=== PATIENT | female | born 1960 | race Caucasian/White ===

== ENCOUNTER → 2018-07-04 | Outpatient (CLI) | payer OTHER, SELFPAY ==
--- NOTE | 2018-07-04 06:10 | RAD_ITS ---
STUDY: X-RAY - LUMBAR SPINE REASON FOR EXAM: Female, 57 years old. Chronic low back pain. TECHNIQUE: 3 view(s) of the lumbar spine were obtained. COMPARISON: None FINDINGS: There is an exaggerated lumbar lordosis. There is no substantial scoliosis. Grade 2 anterior listhesis of L4 on L5 without spondylolysis. Normal vertebral bodies and endplates. There is multi-level degenerative disc disease with multi-level disc space narrowing. Facet joint osteoarthritis. Calcified phleboliths. RAD/Lumbar Spine 2 or 3 Views IMPRESSION: Degenerative changes of the spine, as detailed above. Grade 2 anterior listhesis of L4 on L5. Electronically Signed: Eric Minor, at 9:55 EDT , Service support ,
--- NOTE | 2018-07-04 06:10 | RAD_ITS ---
STUDY: X-RAY - CERVICAL SPINE REASON FOR EXAM: Female, 57 years old. Chronic neck pain. TECHNIQUE: 5 view(s) of the cervical spine were obtained including oblique views. COMPARISON: None FINDINGS: Normal anterior atlantoaxial articulation. Normal odontoid process. There is straightening of the normal cervical lordosis. There is multi-level endplate spondylosis. There is multi-level degenerative disc disease with multilevel disc space narrowing. There is multi-level osseous foraminal stenosis. The soft tissue structures are unremarkable. RAD/Cerv Spine 4 or 5 Views IMPRESSION: Multilevel disc space narrowing and spondylosis. Narrowing of the intervertebral foramen bilaterally. Electronically Signed: Eric Minor, at 9:57 EDT , Service support ,
== END | disposition home or self-care (01) ==
LOC: RAD 05:57
PROVIDERS: Referring Provider Anesthesiology Pain Medicine; Visit Provider Anesthesiology Pain Medicine
DX: M54.2 Cervicalgia (principal); M54.9 Dorsalgia, unspecified
CPT/HCPCS: 72050; 72100

== ENCOUNTER → 2019-12-05 06:09 | Outpatient (CLI) | payer OTHER, SELFPAY ==
--- NOTE | 2019-12-05 06:22 | RAD_ITS ---
STUDY: X-RAY - RIGHT SHOULDER REASON FOR EXAM: Female, 59 years old. RIGHT SHOULDER PAIN, HX OF ARTHRITIS. TECHNIQUE: 4 view(s) of the shoulder. COMPARISON: None. FINDINGS: Normal glenohumeral articulation. Normal acromioclavicular joint. Normal acromion. Normal humeral head and visualized proximal humerus. The soft tissue structures are unremarkable. Normal visualized pulmonary apex. RAD/Shoulder min 2 Views IMPRESSION: Normal x-ray examination of the shoulder. Electronically Signed: Sher Kirk MD at 15:53 EDT Tel , Service support ,
== END ==
PROVIDERS: Referring Provider Nurse Practitioner Family; Visit Provider Nurse Practitioner Family
DX: M25.511 Pain in right shoulder (principal)
CPT/HCPCS: 73030

== ENCOUNTER 2020-01-16 07:00 | Outpatient (RCR) | payer OTHER, SELFPAY ==
--- NOTE | 2019-12-17 17:41 | HP.PTEVAL ---
Patient's Visit Information GASTON CLEANING is a 59 year old F referred to Physical Therapy by Dr. Lance Cavanaugh MD with a diagnosis of c-spine DDD, spondylosis, radic, shld pain. Date of Evaluation: 12/17/19 Physical Therapist: VIVIEN Oseguera - Visit Plan Frequency: 2x /Week Duration: 4 Weeks Plan: 2X/ week for 4 weeks for scapular strengthening, RC strengthening, MT to B mid traps, postural exercises with HEP and modalities as needed. HEP: wall corner stretch and mid rows orange - Subjective Pt just moved here from [place] and been seeing [facility] for 3-4 years for back and neck and 2 TKR. She just had abalation of the bottom 3 c-spine vertebrea and they were hoping that the shoulder pain would go away and it has helped the neck pain by 80% but did not touch the shoulder pain. The shoulder pain keeps her up at night. The shoulder pain started 4 years ago and PCP felt grinding in her shoulder and from that point fw it has gradually gotten worse and the last 3 months have been brutal. 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 It does not stop her, she just takes more pain meds. R shoulder and she is R handed. She has N&T clear down to her hand 1/3 of nights. Sometimes it helps to lay on the R shoulder and sometimes she can not sleep on it. Last night she took 3 extra strength tylenol and tramadol and a flexerile to sleep. - Pain R shoulder pain Pain Intensity (Out of 10): 4 Pain Intensity Range: 10 - Objective R handed R 45# and L 44#. B shld AROM in flex. abd, ER and IR all WFL. + HK test on the R. +empty can test for pain and weakness on the R. Tender to palpation under the acrominion on the R and some bicep tendon tenderness. R shld MMT: flex 4-/5, abd 3+/5, ER 4-/5 and IR 4/5. L shld MMT: flex , abd , ER and IR all 4/5. posture: sits with rounded shoulders and increase PPT - Goals Goal 1:: I HEP Goal Time Frame: 4-6 Weeks Goal 2:: Decrease R shoulder pain to 1/10 with ADL's Goal Time Frame: 4-6 Weeks Goal 3:: Be able to sleep at night without the pain waking her up at night Goal Time Frame: 4-6 Weeks Goal 4:: Increase R shoulder MMT by 1/2 muscle grade Goal Time Frame: 4-6 Weeks Goal 5:: Sit with upright posture during treatment sessions Goal Time Frame: 4-6 Weeks - Rehabilitation Potential Rehabilitation Potential: Good - Anticipated Interventions Patient/Client Instruction: Educate patient on: Condition, Plan of Care For the Purpose of:: To decrease pain, To increase ROM, To improve nutrient delivery to tissue, To improve muscle performance and motor function, To improve ability to perform ADL's, To increase tolerance to activity/condition/position, To improve performance and independence with ADL's, To decrease level of supervision to perform tasks, To improve ability of physical actions for home/community/work/leisure, To improve health of tissue, To increase flexibility/ROM Therapeutic Exercise to Include: Strength training, Postural training, Flexibilty training, Active ROM, Scapular Strength/Stabilization For the Purpose of:: To decrease pain, To increase ROM, To increase oxygenation perfusion, To improve muscle performance and motor function, To improve ability to perform ADL's, To increase tolerance to activity/condition/position, To improve performance and independence with ADL's Manual Therapy Techniques to Include: Passive ROM, Soft tissue mobilization For the Purpose of:: To decrease pain, To increase ROM, To improve nutrient delivery to tissue, To improve muscle performance and motor function IF ES: Yes Cryotherapy (ice pack, ice massage): Yes Thermo therapy (hot pack): Yes Ultrasound (thermal/non thermal): Yes For the Purpose of:: To decrease pain, To decrease swelling/inflammation, To increase ROM, To improve nutrient delivery to tissue Thank you for the opportunity to evaluate your patient. For Medicare and Medicare HMO plans, please review the plan of care and approve it. It will need to be FAXED BACK to us at [phone] for Medicare purposes. For Medicare only, by signing this I certify the plan of care. Please let me know if there are questions or concerns regarding this plan of care. Physician Signature: Date:
--- NOTE | 2020-03-23 10:57 | HP.PT.NRP ---
GASTON CLEANING was seen in my office for initial evaluation on 12/17/19. The following Plan of Care was established for this patient: Initial Frequency: 2x /Week Initial Duration: 4 Weeks Patient/Client Instruction: Educate patient on: Condition, Plan of Care For the Purpose of:: To decrease pain, To increase ROM, To improve nutrient delivery to tissue, To improve muscle performance and motor function, To improve ability to perform ADL's, To increase tolerance to activity/condition/position, To improve performance and independence with ADL's, To decrease level of supervision to perform tasks, To improve ability of physical actions for home/community/work/leisure, To improve health of tissue, To increase flexibility/ROM Therapeutic Exercise to Include: Strength training, Postural training, Flexibilty training, Active ROM, Scapular Strength/Stabilization For the Purpose of:: To decrease pain, To increase ROM, To increase oxygenation perfusion, To improve muscle performance and motor function, To improve ability to perform ADL's, To increase tolerance to activity/condition/position, To improve performance and independence with ADL's Manual Therapy Techniques to Include: Passive ROM, Soft tissue mobilization For the Purpose of:: To decrease pain, To increase ROM, To improve nutrient delivery to tissue, To improve muscle performance and motor function IF ES: Yes Cryotherapy (ice pack, ice massage): Yes Thermo therapy (hot pack): Yes Ultrasound (thermal/non thermal): Yes For the Purpose of:: To decrease pain, To decrease swelling/inflammation, To increase ROM, To improve nutrient delivery to tissue This patient was last seen in our office 01/16/20. Pertinent comments regarding their Physical therapy will appear below: TONE PT At this point I will be discontinuing this patient from physical therapy. I would be happy to see this patient again in the future if found appropriate by the physician. Thank you! Elizabeth Manzo, MPT
== END 2020-01-16 19:00 | disposition home or self-care (01) ==
LOC: PT 07:00
PROVIDERS: Referring Provider Anesthesiology Pain Medicine; Visit Provider Anesthesiology Pain Medicine
DX: M50.10 Cervical disc disorder with radiculopathy, unspecified cervical region (principal); M47.22 Other spondylosis with radiculopathy, cervical region; M48.02 Spinal stenosis, cervical region; M46.92 Unspecified inflammatory spondylopathy, cervical region; M25.519 Pain in unspecified shoulder
CPT/HCPCS: 97110; 97162; 97530

== ENCOUNTER → 2020-01-23 07:03 | Outpatient (CLI) | payer OTHER, SELFPAY ==
[2020-01-23 10:31] LABS: Anion Gap 3 (5-15); BUN 13 mg/dL (7-18); BUN/Creat Ratio 20.5 RATIO (10-20); Calcium,Total 8.8 mg/dL (8.5-10.1); Chloride 108 mmol/L (98-107); Cholesterol 210 mg/dL (200); Creatinine, Serum 0.63 mg/dL (0.55-1.02); EST Glomerular Filtration Rate 102 mL/min (>60); Est Glom Filt Rate - Afr Amer 123 mL/min (>60); Glucose 88 mg/dL (74-106); High Density Lipoprotein 65 mg/dL; Sodium Level 140 mmol/L (136-145); Thyroid Stim Hormone (TSH) 2.26 uIU/mL (0.358-3.74); Triglycerides 116 mg/dL; Very Low Density Lipoprotein 23 mg/dL (5-40)
== END ==
PROVIDERS: PCP Family Medicine; Referring Provider Family Medicine; Visit Provider Family Medicine
DX: Z13.1 Encounter for screening for diabetes mellitus (principal); Z13.220 Encounter for screening for lipoid disorders; Z83.49 Family history of other endocrine, nutritional and metabolic diseases
CPT/HCPCS: 36415; 80048; 80061; 84443

== ENCOUNTER → 2020-02-02 06:28 | Outpatient (CLI) | payer OTHER, SELFPAY ==
--- NOTE | 2020-02-02 06:44 | MRI_ITS ---
STUDY: MRI RIGHT SHOULDER REASON FOR EXAM: Right shoulder pain for 2-3 years, arm weakness, no specific injury. TECHNIQUE: Standardized fat and water weighted pulse sequences were obtained in all 3 orthogonal planes. COMPARISON: Radiographs 12/05/2019. FINDINGS: There is supraspinatus and infraspinatus tendinosis (T2 sagittal images 8-10) without discrete tendon tear. There is mild subscapularis tendinosis (T2 axial image 12) without discrete tendon tear. Normal teres minor tendon. Normal supraspinatus muscle. Normal infraspinatus muscle. Normal subscapularis muscle. Normal teres minor muscle. Normal glenohumeral articulation. There is cystic change of the greater tuberosity. Normal biceps labral complex. Normal intracapsular long biceps tendon. Normal labrum. Normal capsulo- ligamentous complex. There is acromioclavicular arthrosis with an undersurface osteophyte of the distal clavicle abutting the supraspinatus musculotendinous junction (proton-density coronal image 12). There is a Type I morphology (flat undersurface), with a neutral orientation. There is subacromial-subdeltoid bursal fluid. Normal visualized coracohumeral and coracoacromial ligaments. Normal deltoid muscle. Normal trapezius muscle. MRI/Upper Ext Joint Only(Routine) IMPRESSION: Supraspinatus, infraspinatus and subscapularis tendinosis without demonstrated rotator cuff tear. Acromioclavicular arthrosis. Subacromial-subdeltoid bursitis. Electronically Signed: Ankush Hu MD at 7:51 EST Tel , Service support ,
== END ==
PROVIDERS: PCP Family Medicine; Referring Provider Anesthesiology Pain Medicine; Visit Provider Anesthesiology Pain Medicine
DX: M25.511 Pain in right shoulder (principal)
CPT/HCPCS: 73221

== ENCOUNTER → 2020-03-01 12:07 | Outpatient (CLI) | payer OTHER, SELFPAY | PROVIDERS: PCP Family Medicine; Visit Provider Nurse Practitioner Adult Health | DX: Z20.828 Contact with and (suspected) exposure to other viral communicable diseases (principal) | CPT/HCPCS: 87635; U0005; U0003 ==

== ENCOUNTER → 2020-03-10 07:33 | Outpatient (CLI) | payer OTHER, SELFPAY ==
--- NOTE | 2020-03-10 07:35 | BI_ITS ---
MAMMOGRAPHY - BILATERAL SCREENING REASON FOR EXAM: Female, 59 years old. Routine annual screening examination. PERTINENT HISTORY: Non-contributory. TECHNIQUE: Digital bilateral breast mervin (3D mammographic acquisition) in the CC and MLO projections. 2-D mediolateral oblique (MLO) and craniocaudad (CC) views of both breasts were obtained. CAD: Full Field Digital Mammography with Computer Added Detection was performed. COMPARISON: Comparison is made with prior outside examination dated 06/13/2016. FINDINGS: Breast Composition: There are scattered areas of fibroglandular density. There are no dominant masses or suspicious calcifications. Stable benign-appearing bilateral axillary lymph nodes. No other significant abnormalities are identified. There has been no significant change since the prior study. BI/SCRN MAMM (CAD)W/MERVIN BILAT IMPRESSION: Stable bilateral screening mammogram. Yearly follow-up mammogram recommended. (A) ASSESSMENT CATEGORY: BIRADS Category 2: Benign. A letter regarding these results will be sent to the patient by the facility within 30 days. Approximately 10% of breast cancers are not detected by mammography. A normal mammogram should not delay biopsy of a clinically suspicious abnormality. [id number] Electronically Signed: Eric Minor MD at 13:57 EST , Service support ,
== END ==
PROVIDERS: PCP Family Medicine; Referring Provider Family Medicine; Visit Provider Family Medicine
DX: Z12.31 Encounter for screening mammogram for malignant neoplasm of breast (principal)
CPT/HCPCS: 77063; 77067

== ENCOUNTER → 2020-06-03 16:06 | Outpatient (CLI) | payer OTHER, SELFPAY ==
--- NOTE | 2020-06-03 16:08 | RAD_ITS ---
STUDY: X-RAY - LEFT WRIST REASON FOR EXAM: Female, 59 years old. PAIN TECHNIQUE: 4 view(s) of the wrist were obtained including the scaphoid view. COMPARISON: None. FINDINGS: Normal visualized distal radius and ulna. Normal radiocarpal articulation. Normal distal radioulnar articulation. Cystic changes and sclerosis are seen in the distal portion of the scaphoid bone. Periarticular erosions are seen at the level of the trapezium. Normal carpal articulations. Normal carpometacarpal articulation of the thumb. Normal second through fifth carpometacarpal articulations. Normal visualized metacarpal bones. The soft tissue structures are unremarkable. RAD/Wrist min 3 Views IMPRESSION: Degenerative changes seen at the scaphoid trapezium joint with subchondral cystic changes and sclerosis. Electronically Signed: Eric Minor MD at 15:22 EDT , Service support ,
== END ==
PROVIDERS: PCP Family Medicine; Referring Provider Family Medicine; Visit Provider Family Medicine
DX: M25.532 Pain in left wrist (principal)
CPT/HCPCS: 73110

== ENCOUNTER → 2020-06-11 07:01 | Outpatient (CLI) | payer OTHER, SELFPAY ==
[2020-06-11 10:10] LABS: Erythrocyte Sedimentation Rate 12 mm/hr (0-30)
[2020-06-11 10:41] LABS: CRP, High Sensitivity Cardiac 1.72 mg/L; Rheumatoid Factor < 10.0 IU/mL (<15)
[2020-06-14 10:46] LABS: ANTINUCLEAR ANTIBODIES DIRECT Negative (Negative)
== END ==
PROVIDERS: PCP Family Medicine; Referring Provider Family Medicine; Visit Provider Family Medicine
DX: M25.532 Pain in left wrist (principal)
CPT/HCPCS: 36415; 85652; 86038; 86141; 86431

== ENCOUNTER 2020-10-11 18:30 | Outpatient (RCR) | payer OTHER, SELFPAY ==
--- NOTE | 2020-07-30 12:47 | HP.OTEVAL ---
Patient's Visit Information GASTON CLEANING is a 59 year old F, referred to Occupational Therapy by Dr. Aiden Carbajal MD, with a diagnosis of left wrist pain. Date of Evaluation: 07/19/20 Occupational Therapist: Perlita Gamez, MARGARITAR/Lg, CHT - Subjective This 59 year old female was seen for OT eval with dx of left wrist pain- pt states she has had dx of arthritis for years and has had multipole issues with joints knees, wrist, back and neck. pt works at [employer]- pt states she works 8 hours a day. pt is right handed and when her left hand hurts she uses right hand more. pt points to base of left thumb, radial styloid. pt would like to decrease pain and return to her PLOF. - Pain left wrist pain 5 Pain Intensity Range: 3, 6 - ROM Wrist: right 65/60 left 55/55 CMC: right 5 left 5 MP: right 60 left 65 IP: right 50 left 35 Radial Abduction: right 40 left 40 Opposition: right 10 left 10 - Strength Staff Development Nurse: right 35 left 20 Lateral Pinch: right 6# left 6# Tripod Pinch: right 2# left unable - Sensation Sensation Comments: gets numbness while sleeping - Quick DASH-Disab of Arm,Shoulder& Hand Quick DASH Score: 46.6650 - Goals Goal:: pt will demo a increase in left hull molder strength by 15# or greater to return to PLOF with ADls and IADLS by d/c. pt will demo a increase in left pinch strength by 4# to increase pts ind. with ADLs and IADLs by d/c Goal:: pt will report no pain greater than 1/10 with use of left UE with ADLs and IADLs by d/c - Rehabilitation General Assessment: pt demo with limited with ALDs and IADLs due to left wrist pain and weakness. pt would benefit from skilled OT services 1-2x week for 4 weeks. Today therapist siddharth. custom orthosis to provide protection and support of left wrist and decrease pain. therapist ed. pt on use and skin care precautions. pt demo understanding- therapy will progress pt with ed. on work station ergo, joint protection, AROM and PRE when able pt demo understanding and agree to POC. Rehabilitation Potential: Good - Anticipated Interventions A/AAROM/PROM, Triggerpoint Release, Modalities, Orthoses, Joint Protection/Energy Conservation, Ergonomic Education, ADL Training, Education re assistive Equipment, Education re Diagnosis - Visit Plan Frequency: 1-2x /Week Duration: 4 Weeks TEXT: Thank you for the opportunity to evaluate your patient. For Medicare and Medicare HMO plans, please review the plan of care and approve it. It will need to be FAXED BACK to us at [phone] for Medicare purposes. Please let me know if there are questions or concerns regarding this plan of care. Physician Signature: Date:
--- NOTE | 2021-03-03 11:15 | HP.OT.NRP ---
GASOTN CLEANING was seen in my office for initial evaluation on 07/19/20. The following Plan of Care was established for this patient: Initial Frequency: 1-2x /Week Initial Duration: 4 Weeks Plan: US manual tx Anticipated Interventions: A/AAROM/PROM, Triggerpoint Release, Modalities, Orthoses, Joint Protection/Energy Conservation, Ergonomic Education, ADL Training, Education re assistive Equipment, Education re Diagnosis This patient was last seen in our office 10/11/20. Pertinent comments regarding their Occupational therapy will appear below: pt was seen for 6 OT sessions with dx of wrist pain- conservative methods were not helping pt and pt was advised to return to Dr. Pt has not scheduled further apts and due to time lapse in services pt d/c. At this point I will be discontinuing this patient from occupational therapy. I would be happy to see this patient again in the future if found appropriate by the physician. Thank you! Perlita Gamez, OTR/L, CHT
== END 2020-10-11 19:00 | disposition home or self-care (01) ==
LOC: OT 18:30
PROVIDERS: PCP Family Medicine; Referring Provider Family Medicine; Visit Provider Family Medicine
DX: M25.532 Pain in left wrist (principal)
CPT/HCPCS: 97035; 97110; 97140; 97166; 97530; 97760

== ENCOUNTER → 2020-10-15 07:15 | Outpatient (CLI) | payer OTHER, SELFPAY ==
[2020-10-15 10:53] LABS: AST(SGOT) 24 U/L (15-37); Alanine Aminotransfer ALT/SGPT 46 U/L (13-56); Albumin, Serum 3.8 g/dL (3.2-5.0); Alkaline Phosphatase 113 U/L (45-117); Anion Gap 7 (5-15); BUN 13 mg/dL (7-18); BUN/Creat Ratio 22.2 RATIO (10-20); Calcium,Total 9.1 mg/dL (8.5-10.1); Chloride 106 mmol/L (98-107); Cholesterol 203 mg/dL (200); Creatinine, Serum 0.58 mg/dL (0.55-1.02); EST Glomerular Filtration Rate 111 mL/min (>60); Est Glom Filt Rate - Afr Amer 134 mL/min (>60); Globulin 3.8 g/dL (2.2-4.2); Glucose 90 mg/dL (74-106); High Density Lipoprotein 58 mg/dL; Potassium 3.9 mmol/L (3.5-5.1); Protein, Total 7.6 g/dL (6.4-8.2); Sodium Level 139 mmol/L (136-145); Triglycerides 125 mg/dL; Very Low Density Lipoprotein 25 mg/dL (5-40)
== END ==
PROVIDERS: PCP Family Medicine; Referring Provider Family Medicine; Visit Provider Family Medicine
DX: E78.5 Hyperlipidemia, unspecified (principal)
CPT/HCPCS: 36415; 80053; 80061

== ENCOUNTER → 2020-10-29 07:14 | Outpatient (CLI) | payer OTHER, SELFPAY ==
[2020-10-29 10:04] LABS: Absolute Lymphocyte Count 2.53 X10^3/uL (0.83-4.51); Absolute Neutrophil Count 3.4 X10^3/uL (2.0-7.7); Basophil# 0.03 X10^3/uL; Basophil% 0.4 % (0-1); Eosinophil# 0.11 X10^3/uL; Eosinophils% 1.6 % (0-5); Hematocrit 38.1 % (37-47); Lymphocyte # 2.53 X10^3/ul (0.83-4.51); Lymphocyte % 37.6 % (19-41); Mean Corp Hgb Conc 31.5 g/dL (32-36); Mean Corpuscular Hgb 31.6 pg (27.0-32.0); Mean Corpuscular Volume 100.3 fL (81-99); Monocyte# 0.62 X10^3/uL; Monocyte% 9.2 % (0-10); NRBC Flagged by Analyzer 0 % (0-5); Neutrophil # 3.41 X10^3/uL (2.7-7.7); Neutrophil % 50.9 % (47-70); Platelet Count 388 K/mm3 (150-450); RBC Distribution Width CV 12.1 % (11.6-14.6); RBC Distribution Width SD 44.7 fl (35.1-43.9); White Blood Count 6.7 K/mm3 (4.4-11.0)
--- NOTE | 2020-10-29 10:10 | RAD_ITS ---
STUDY: X-RAY - PELVIS REASON FOR EXAM: Female, 59 years old. POLYARTHROPATHY TECHNIQUE: One view of the pelvis was obtained. COMPARISON: None. FINDINGS: There is a non-specific bowel gas pattern. Normal visualized soft tissue structures. Normal bilateral iliac wings, sacroiliac joints and visualized sacrum. Normal visualized bilateral superior and inferior pubic rami. Normal pubic symphysis. Normal ischial tuberosities. Normal visualized right femoral head. Normal right acetabulum. Normal right hip joint. Normal visualized left femoral head. Normal left acetabulum. Normal left hip joint. RAD/Pelvis 1 or 2 Views IMPRESSION: Normal x-ray examination of the pelvis. Electronically Signed: Sher Kirk MD at 6:36 EDT Tel , Service support ,
[2020-10-29 10:37] LABS: ALB/GLOB Ratio 0.9 RATIO (0.9-2.4); AST(SGOT) 16 U/L (15-37); Alanine Aminotransfer ALT/SGPT 41 U/L (13-56); Albumin, Serum 3.7 g/dL (3.2-5.0); Alkaline Phosphatase 115 U/L (45-117); Anion Gap 5 (5-15); BUN 15 mg/dL (7-18); BUN/Creat Ratio 22.2 RATIO (10-20); CRP < 2.90 mg/L (0.0-3.0); Calcium,Total 9.4 mg/dL (8.5-10.1); Chloride 103 mmol/L (98-107); Creatinine, Serum 0.68 mg/dL (0.55-1.02); EST Glomerular Filtration Rate 94 mL/min (>60); Est Glom Filt Rate - Afr Amer 113 mL/min (>60); Globulin 4.2 g/dL (2.2-4.2); Glucose 95 mg/dL (74-106); Protein, Total 7.9 g/dL (6.4-8.2); Rheumatoid Factor < 10.0 IU/mL (<15); Sodium Level 137 mmol/L (136-145)
[2020-10-29 10:57] LABS: Hepatitis B Surface Antibody Reactive; Hepatitis B Surface Antigen Non-Reactive (Nonreactive); Hepatitis C Antibody Non-Reactive (Nonreactive)
[2020-11-04 16:49] LABS: CCP IgG Antibodies 3 units (0-19); HLA B27 Negative (.)
== END ==
PROVIDERS: PCP Family Medicine; Referring Provider Internal Medicine Rheumatology; Visit Provider Internal Medicine Rheumatology
DX: M06.4 Inflammatory polyarthropathy (principal); M17.0 Bilateral primary osteoarthritis of knee; M21.41 Flat foot [pes planus] (acquired), right foot; M41.9 Scoliosis, unspecified
CPT/HCPCS: 36415; 72170; 80053; 81374; 85025; 86140; 86200; 86431; 86706; 86803; 87340

== ENCOUNTER 2021-02-15 08:10 | Outpatient (CLI) | payer OTHER, SELFPAY ==
--- NOTE | 2021-02-15 08:25 | BD_ITS ---
STUDY: DUAL ENERGY X-RAY ABSORPTIOMETRY / DXA REASON FOR EXAM: Female, 60 years old. [id number]. The patient is postmenopausal. TECHNIQUE: Bone Mineral Density (BMD) measurements of lumbar spine and bilateral hips were obtained. COMPARISON: None. FINDINGS: Lumbar Spine (L1-L4): g/cm2 (1.143) / T-score (0.9) / Z-score (2.4) Findings are suggestive of normal bone density with a low fracture risk. Left Femur Total: g/cm2 (0.970) / T-score (0.2) / Z-score (1.3) Left Femoral Neck: g/cm2 (0.826) / T-score (-0.2) / Z-score (1.2) Right Femur Total: g/cm2 (0.999) / T-score (0.5) / Z-score (1.5) Right Femoral Neck: g/cm2 (0.880) / T-score (0.3) / Z-score (1.7) BD/Dexa Bone Density Study IMPRESSION: The patient is considered normal as outlined below according to World [employer] Organization (WHO) criteria with a low fracture risk. Reference Information: The T-score is the number of standard deviations above or below the standard which is normal for young adults at their peak bone mineral density. The World Health Organization (WHO) interprets the T-scores as follows: Above -1 Normal bone density Between -1 and -2.5 Osteopenia Equal to / or below -2.5 Osteoporosis As a practical clinical guideline, osteopenia may be graded as follows: Mild -1 through -1.5 Moderate -1.6 through -2.0 Severe -2.1 through -2.4 The Z-score is the number of standard deviations above or below age-matched controls. A Z-score of less than -1.5 would be considered abnormal. References: 1. NIH Osteoporosis and Related Bone Diseases www osteo.org 2. International Society for Clinical Densitometry www iscd.org 3. National Osteoporosis Foundation www nof.org Electronically Signed: Eric Minor MD at 9:08 EST , Service support ,
== END 2021-02-15 23:59 | disposition short-term general hospital (02) ==
LOC: OPBD 08:10
PROVIDERS: PCP Family Medicine; Visit Provider Family Medicine
DX: Z78.0 Asymptomatic menopausal state (principal)
CPT/HCPCS: 77080